=== PATIENT | male | born 1980 | race Caucasian/White ===

== ENCOUNTER 2017-12-07 05:50 | Day surgery (SDC) | payer OTHER ==
[~2017-12-07] VITALS: Ht 182.9 cm; Wt 108.9 kg
--- NOTE | ~2017-12-07 | O ---
[facility] [place] [address] OPERATIVE REPORT Name: LYDIA AUGUSTIN Room #: DEP [facility]..#: [id number] Admission: 12/07/17 Attend Phys: Tim Dominguez MD Discharge: 12/07/17 Date of : 82 Report #: [id number] THIS REPORT FOR: //name// CC: Jaz Dominguez DATE OF SERVICE: 12/07/[address] Tim Dominguez and Dr. Jaz Dominguez. PREOPERATIVE DIAGNOSIS: Incarcerated umbilical hernia. POSTOPERATIVE DIAGNOSIS: Incarcerated umbilical hernia. PROCEDURE: Repair of an incarcerated umbilical hernia. SURGEON: Tim Dominguez MD ANESTHESIA: Local IV sedation. DESCRIPTION OF PROCEDURE: The patient was brought to the operating room and placed on operative table in the supine position. Sequential compression devices were in place for DVT prophylaxis. There was no indication for preoperative antibiotics. The patient underwent IV sedation. The abdomen was then prepped and draped in a sterile fashion. Skin and subcutaneous tissue were then infiltrated with 0.5% Marcaine and 1% Xylocaine in a 1:1 mixture. An infraumbilical transverse skin incision was then performed using #15 scalpel blade. Hemostasis obtained using electrocautery. Dissection was carried down through subcutaneous tissue and around this incarcerated preperitoneal umbilical hernia sac, which was dissected free and reduced back through the fascia into the preperitoneal space. The defect was then closed using interrupted [id number] #1 Prolene sutures. Deep and superficial subcutaneous tissue was then reapproximated using simple interrupted 2-0 chromic sutures and the skin then closed with a running 4-0 subcuticular Vicryl stitch. The wound was then dressed with Dermabond. The patient was then taken to the recovery room awake, alert and in good condition. Estimated blood loss was approximately 10 mL and the patient tolerated procedure well. All sponge, lap and instrument counts correct x 2. <ELECTRONICALLY SIGNED> By: Tim Dominguez MD 12/13/17 1554 [id number] 1501 Tim Dominguez MD /nt
--- NOTE | ~2017-12-07 | EKG ---
[address] [address] ELECTROCARDIOGRAM REPORT Name: LYDIA AUGUSTIN Room #: 150-9 [facility].#: [id number] Admission: 12/07/17 Attend Phys: Tim Dominguez MD Discharge: Date of : 82 Report #: [id number] THIS REPORT FOR: //name// 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
[~2017-12-07 05:50] MED LIST: CRESTOR10 MG PO; FLONASE 0.05%50 MCG NASAL; HYDROCHLOROTHIA25 M1 PO; NAPROSYN500 MG PO; NORCO 5-325 TA1 EACH PO; NORVASC 5 MG TAB5 MG PO; VERAPAMIL E.R240 M1 PO; ZYRTEC10 M5 PO
[2017-12-07 12:32] VITALS: BP 161/92
[2017-12-07] MEDS ORDERED: HYDROCODONE-AP1 EAC6 PO (13:43)
[2017-12-07 15:24] VITALS: BP 161/92
== END 2017-12-07 15:40 | disposition home or self-care (01) ==
LOC: TBA 05:50 → OR 05:50
DX: K42.0 Umbilical hernia with obstruction, without gangrene (principal); Z87.891 Personal history of nicotine dependence; I10 Essential (primary) hypertension; E78.5 Hyperlipidemia, unspecified; Z98.890 Other specified postprocedural states
CPT/HCPCS: 50010; 50101; 50386; 50417; 54118; 56524; 56525; 56526; 70005